=== PATIENT | female | born 1990 | race Caucasian/White ===

== ENCOUNTER 2017-10-13 20:00 | Inpatient (IN) ==
[2017-10-13] MEDS ORDERED: 0.9 % Sodium Chloride 1,000 ML ONE (20:41)
[2017-10-13] MEDS ORDERED: 0.9 % Sodium Chloride 1,000 ML IVC ONE (20:47)
[2017-10-13] MEDS: Naloxone 0.4 MG/ML INJ ONE ×3 (20:49→22:27)
[2017-10-13] MEDS ORDERED: Naloxone 0.4 MG/ML INJ ONE ×3 (20:55→22:26)
[2017-10-13 21:01] LABS: Basophils % 0.3 %; Eosinophils # 0.4 K/mcL (0.0-0.6); Eosinophils % 3.9 %; Hematocrit 35.6 % (35.3-44.9); Hemoglobin 12.6 g/dL (11.5-15.4); Immature Granulocytes % 0.3 % (0-4); Lymphocytes # 2.9 K/mcL (0.6-4.6); Lymphocytes % 32.7 %; Mean Corpuscular HGB Conc 35.4 g/dL (31.6-35.5); Mean Corpuscular Hemoglobin 30.1 pg (28.0-33.3); Mean Platelet Volume 9.1 fL (9.4-12.4); Monocytes # 0.6 K/mcL (0.0-1.3); Monocytes % 6.9 %; Platelet Count 224 K/mcL (140-400); Red Blood Count 4.19 M/mcL (3.82-4.97); Red Cell Distribution Width 11.9 % (11.5-14.5); Segmented Neutrophils % 55.9 %
[2017-10-13 21:08] LABS: INR 1.3; Prothrombin Time 14.2 Seconds (9.4-12.1)
--- NOTE | 2017-10-13 21:11 | Emergency Department Note ---
Disposition Clinical Impression: Vaginal bleeding, Polysubstance abuse Altered mental status Qualifiers: Altered mental status type: unspecified Qualified Code(s): R41.82 - Altered mental status, unspecified Overdose Qualifiers: Encounter type: initial encounter Injury intent: undetermined intent Qualified Code(s): T50.904A - Poisoning by unspecified drugs, medicaments and biological substances, undetermined, initial encounter Disposition: Admitted As Inpatient Condition: Fair Referrals: NONE,PCP [Primary Care Provider] - Forms: ED Satisfaction Letter Time of Disposition: 23:47 General Adult HPI - General Chief complaint: ED Urogenital-Female Stated complaint: vaginal bleeding Time Seen by Provider: 10/13/17 20:11 Source: patient Mode of arrival: ambulatory Limitations: no limitations Nursing Notes Reviewed: Yes Vital Signs Reviewed: Yes - History of Present Illness HPI Narrative: 26-year-old female persists for evaluation of vaginal bleeding. Patient is not able to provide an accurate history. Patient appears somnolent during history taking. Review the record showed the patient was seen earlier this morning and left AGAINST MEDICAL ADVICE. Patient states that she has had a couple days of vaginal spotting and noted worsening vaginal bleeding tonight. Patient reports some abdominal cramping. Patient states she is but is unclear how far along she is. Denies any fevers or cough. States she feels nauseous. Patient states she smokes marijuana but denies any other illicit drugs. Family or friend at bedside states that they have he is Narcan during the last CD evaluation to arouse the patient. Pain Scale: 8 - Related Data Home Medications Medication Instructions Recorded Confirmed No Known Home Drugs 10/13/17 10/13/17 Allergies Allergy/AdvReac Type Severity Reaction Status Date / Time No Known Allergies Allergy Verified 10/13/17 20:05 All systems ED: reviewed and negative except as stated. Constitutional: Denies: fever Cardiovascular: Denies: chest pain Respiratory: Denies: cough Gastrointestinal: Reports: nausea, vomiting. 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 - Social History Smoking Status: Current every day smoker Smokeless Tobacco Status: No Alcohol use: Reports: none Drug use: Reports: none Physical Exam - General Limitations: no limitations General appearance: appears intoxicated - Head Head exam: atraumatic, normocephalic, normal inspection - Eye Eye exam: Present: normal appearance, PERRL, EOMI - ENT ENT exam: normal exam, normal oropharynx, mucous membranes moist - Neck Neck exam: Present: normal inspection, full ROM, trachea midline - Chest Chest inspection: Present: normal inspection, symmetric chest wall rise - Respiratory Respiratory exam: Present: normal lung sounds bilaterally. Absent: respiratory distress - Cardiovascular Cardiovascular exam: Present: normal rhythm, tachycardia. Absent: systolic murmur - Abdominal Exam Abdominal exam: Present: soft, Non-Tender, other (No palpable gravid uterus). Absent: guarding, rebound - Female Production Line Manager present during exam: Yes External Exam: Present: normal external exam, other (spotting of blood, no active hemorrhage ) Speculum Exam: Present: Pt Deferred Bimanual Exam: Present: Pt Deferred - Extremities Exam Extremities exam: Present: normal inspection. Absent: pedal edema - Back Exam Back exam: Present: normal inspection. Absent: CVA tenderness (R), CVA tenderness (L) - Neurological Exam Neurological exam: Present: alert, oriented X3 - Psychiatric Psychiatric exam: Present: flat affect - Skin Skin exam: Present: warm, dry, intact, normal color Course Course Narrative: Patient seen and examined. Patient appeared be under the influence of opiates. Patient pinpoint pupils with decreased responsiveness. Patient was given one 0.4mg Narcan with reversal and was able to answer question appropriately. Patient ultimately required another 0.4 mg of Narcan. Concerns at the patient likely is miscarrying. Patient's records reviewed show that the patient did have positive urine drug screen including benzos opiates cocaine and marijuana. Patient had normal hemoglobin from prior evaluation. Will repeat labs in gather ultrasound. Disposition pending. - Reevaluation(s) Reevaluation #1: Patient will require Narcan drip. Time: 21:54 Reevaluation #2: Patient intermittently responds to a higher dose of Narcan. Narcan drip started however the patient will be evaluated for altered mental status. Will get a head CT chest x-ray additional labs. At this point the patient is on Narcan drip and if she continues to be altered with decreased responsiveness she will likely require intubation. Time: 22:45 Reevaluation #3: Patient continued to be combative and would not cooperate. Patient had intermittent response with Narcan. Patient's not cooperating. Patient will need to be intubated. At this point the patient's a threat to herself. Patient will also need to be pink slipped and evaluated once her overdose and not under the influence of sentences has resolved. Time: 23:03 - Consultations Consultation #1: Spoke with OB who will see the patient in consult. Time: 23:32 Vital Signs Temperature 98.1 F 10/13/17 20:01 Pulse Rate 118 10/13/17 20:01 Respiratory Rate 20 10/13/17 20:01 Blood Pressure 107/76 10/13/17 20:01 O2 Sat by Pulse Oximetry 97 10/13/17 20:01 Temperature 98.1 F 10/13/17 20:26 Pulse Rate 91 10/13/17 23:40 Respiratory Rate 20 10/13/17 23:40 Blood Pressure 124/82 10/13/17 23:40 O2 Sat by Pulse Oximetry 100 10/13/17 23:40 Oxygen Delivery Oxygen Delivery Room Air Procedures - Intubation Time out performed: Yes sedative: Etomidate Mg Given: 20 paralytic: Rocuronium Mg Given: 50 Laryngoscope: fiber optic video scope ET Tube Size: 7.5 ET Tube Uncuffed: Yes Tube Secured Depth (cm): 22 Tube Secured Location: lips Tube Placement Confirmation: visualized tube passing through cords, equal breath sounds bilaterally, no breath sounds over epigastrium, confirmation by capnometry Patient Tolerated Procedure: well, no complications Intubation Complications: none Medical Decision Making - [facility] Narrative Medical decision making narrative: 26 show female with a history of polysubstance abuse presents for evaluation of vaginal bleeding. Patient was found to have a decreased level of consciousness. Patient was intermittently responding to Narcan. Ultimately the patient was on Narcan drip but did not significantly improve. Concerns for aspiration airway compromise as well as the patient's polysubstance use prompted a secure airway. Patient would localize pain. Patient would move all extremities. Eyes open to painful stimulus. Patient would mumble incomprehensible words at times prior to intubation. Patient then would become deeply sedated. - Lab Data Lab results reviewed: Yes I reviewed the patient's lab results. Result diagrams: 10/13/17 20:47 10/13/17 20:47 Lab Results 06/18/18 06/18/18 06/18/18 Range/Units 20:47 20:47 20:47 WBC 8.9 (4.3-11.1) K/mcL RBC 4.19 (3.82-4.97) M/mcL Hgb 12.6 (11.5-15.4) g/dL Hct 35.6 (35.3-44.9) % MCV 85.0 (83.0-100.0) fL MCH 30.1 (28.0-33.3) pg MCHC 35.4 (31.6-35.5) g/dL RDW 11.9 (11.5-14.5) % Plt Count 224 (140-400) K/mcL MPV 9.1 L (9.4-12.4) fL Immature Gran % 0.3 (0-4) % Seg Neutrophils % 55.9 % Lymphocytes % 32.7 % Monocytes % 6.9 % Eosinophils % 3.9 % Basophils % 0.3 % Neutrophils # 5.0 (1.6-8.9) K/mcL Lymphocytes # 2.9 (0.6-4.6) K/mcL Monocytes # 0.6 (0.0-1.3) K/mcL Eosinophils # 0.4 (0.0-0.6) K/mcL Basophils # 0.0 (0.0-0.2) K/mcL PT 14.2 H (9.4-12.1) Seconds INR 1.3 Sodium 135 L (136-145) mEq/L Potassium 3.6 (3.5-5.1) mEq/L Chloride 100 (98-107) mEq/L Carbon Dioxide 26 (23-29) mEq/L BUN 9 (6-20) mg/dL Creatinine 0.71 (0.60-1.20) mg/dL Est GFR ( Amer) > 60 (> 60) Est GFR (Non-Af Amer) > 60 (> 60) BUN/Creatinine Ratio 13 (6-26) Glucose 107 H (70-105) mg/dL Calculated Osmolality 279 L (280-300) Calcium 10.0 (8.6-10.3) mg/dL Total Bilirubin 0.6 (0.3-1.0) mg/dL Direct Bilirubin 0.2 (0.0-0.2) mg/dL Indirect Bilirubin 0.4 (0.0-1.2) mg/dL AST 17 (13-39) Units/L ALT 8 (7-52) Units/L Alkaline Phosphatase 44 (34-104) Units/L Serum Total Protein 7.3 (6.4-8.9) g/dL Albumin 4.3 (3.5-5.7) g/dL Globulin 3.0 (2.4-3.5) g/dL Albumin/Globulin Ratio 1.4 (1.1-2.2) Beta HCG, Quant 2359 H (Less than 5) mIU/mL Urine Color (Yellow) Urine Clarity (Clear) Urine pH (5.0-8.0) pH Units Ur Specific [place] (1.010-1.025) Urine Protein (Neg-Trace) mg/dL Urine Glucose (UA) (Normal) mg/dL Urine Ketones (Negative) mg/dL Urine Blood (Negative) Urine Nitrite (Negative) Urine Bilirubin (Negative) Urine Urobilinogen (Normal) mg/dL Ur Leukocyte Esterase (Negative) Ur Culture Indicated? (NO) 10/13/17 Range/Units 23:33 WBC (4.3-11.1) K/mcL RBC (3.82-4.97) M/mcL Hgb (11.5-15.4) g/dL Hct (35.3-44.9) % MCV (83.0-100.0) fL MCH (28.0-33.3) pg MCHC (31.6-35.5) g/dL RDW (11.5-14.5) % Plt Count (140-400) K/mcL MPV (9.4-12.4) fL Immature Gran % (0-4) % Seg Neutrophils % % Lymphocytes % % Monocytes % % Eosinophils % % Basophils % % Neutrophils # (1.6-8.9) K/mcL Lymphocytes # (0.6-4.6) K/mcL Monocytes # (0.0-1.3) K/mcL Eosinophils # (0.0-0.6) K/mcL Basophils # (0.0-0.2) K/mcL PT (9.4-12.1) Seconds INR Sodium (136-145) mEq/L Potassium (3.5-5.1) mEq/L Chloride (98-107) mEq/L Carbon Dioxide (23-29) mEq/L BUN (6-20) mg/dL Creatinine (0.60-1.20) mg/dL Est GFR ( Amer) (> 60) Est GFR (Non-Af Amer) (> 60) BUN/Creatinine Ratio (6-26) Glucose (70-105) mg/dL Calculated Osmolality (280-300) Calcium (8.6-10.3) mg/dL Total Bilirubin (0.3-1.0) mg/dL Direct Bilirubin (0.0-0.2) mg/dL Indirect Bilirubin (0.0-1.2) mg/dL AST (13-39) Units/L ALT (7-52) Units/L Alkaline Phosphatase (34-104) Units/L Serum Total Protein (6.4-8.9) g/dL Albumin (3.5-5.7) g/dL Globulin (2.4-3.5) g/dL Albumin/Globulin Ratio (1.1-2.2) Beta HCG, Quant (Less than 5) mIU/mL Urine Color Yellow (Yellow) Urine Clarity Clear (Clear) Urine pH 6.0 (5.0-8.0) pH Units Ur Specific [place] 1.013 (1.010-1.025) Urine Protein Negative (Neg-Trace) mg/dL Urine Glucose (UA) Normal (Normal) mg/dL Urine Ketones Trace H (Negative) mg/dL Urine Blood Negative (Negative) Urine Nitrite Negative (Negative) Urine Bilirubin Negative (Negative) Urine Urobilinogen Normal (Normal) mg/dL Ur Leukocyte Esterase Negative (Negative) Ur Culture Indicated? NO (NO) - Radiology Data Radiology results reviewed: Yes I reviewed the patient's radiology results. Chest X-Ray 10/13/17 22:44 IMPRESSION: 1. Endotracheal tube terminates 2.7 cm above edwardo. 2. Enteric tube tip and side-port in the gastric fundus below the gastroesophageal junction. 3. No acute cardiopulmonary abnormality. D/ / Neil Rodriguez / Neil Rodriguez Interpreting Provider: Neil Rodriguez S.[email or web address].AJavyR. - S.Sarah Situation: Demographics Background: Presenting Complaint Assessment: Vital Signs, Course and respsone to treatment, Patient/Family Expectation Recommendation: Barrier(s) to disposition, Recommendation based on pending studies, treatments, or consults Oneil Report Given to: Dr. Leonor Riggs Repor Time: 23:58
[2017-10-13 21:49] LABS: Alanine Aminotransferase 8 Units/L (7-52); Albumin 4.3 g/dL (3.5-5.7); Albumin/Globulin Ratio 1.4 (1.1-2.2); Alkaline Phosphatase 44 Units/L (34-104); Aspartate Amino Transferase 17 Units/L (13-39); BUN/Creatinine Ratio 13 (6-26); Bilirubin,Direct 0.2 mg/dL (0.0-0.2); Bilirubin,Indirect 0.4 mg/dL (0.0-1.2); Bilirubin,Total 0.6 mg/dL (0.3-1.0); Blood Urea Nitrogen 9 mg/dL (6-20); Carbon Dioxide 26 mEq/L (23-29); Chloride 100 mEq/L (98-107); Glucose 107 mg/dL (70-105); Osmolality,Calculated 279 (280-300); Potassium 3.6 mEq/L (3.5-5.1); Sodium 135 mEq/L (136-145); Total Protein 7.3 g/dL (6.4-8.9); eGFR For African Americans > 60 (> 60); eGFR For Non-African Americans > 60 (> 60)
[2017-10-13] MEDS ORDERED: Naloxone 2 MG in 0.9 % Sodium Chloride 500 ML IVC SCH (22:00)
[2017-10-13] MEDS ORDERED: Propofol 500 MG/50 ML INFUS..BTL ONE (23:19)
[2017-10-13 23:43] LABS: Bilirubin,Urine Negative (Negative); Blood,Urine Negative (Negative); Clarity,Urine Clear (Clear); Color,Urine Yellow (Yellow); Glucose,Urine (UA) Normal (Normal); Ketones,Urine Trace mg/dL (Negative); Leukocyte Esterase,Urine Negative (Negative); Nitrite,Urine Negative (Negative); Protein,Urine Negative (Neg-Trace); Specific Gravity,Urine 1.013 (1.010-1.025); Urobilinogen,Urine Normal (Normal)
--- NOTE | 2017-10-13 23:58 | Emergency Department Note ---
Disposition Clinical Impression: Vaginal bleeding, Polysubstance abuse Altered mental status Qualifiers: Altered mental status type: unspecified Qualified Code(s): R41.82 - Altered mental status, unspecified Overdose Qualifiers: Encounter type: initial encounter Injury intent: undetermined intent Qualified Code(s): T50.904A - Poisoning by unspecified drugs, medicaments and biological substances, undetermined, initial encounter Disposition: Admitted As Inpatient Condition: Fair General Adult HPI - General Chief complaint: ED Urogenital-Female Stated complaint: vaginal bleeding Time Seen by Provider: 10/13/17 20:11 Source: patient Mode of arrival: ambulatory Limitations: no limitations Nursing Notes Reviewed: Yes Vital Signs Reviewed: Yes - History of Present Illness Pain Scale: 8 - Related Data Home Medications Medication Instructions Recorded Confirmed No Known Home Drugs 10/13/17 10/13/17 Allergies Allergy/AdvReac Type Severity Reaction Status Date / Time No Known Allergies Allergy Verified 10/13/17 20:05 Constitutional: Denies: fever Cardiovascular: Denies: chest pain Respiratory: Denies: cough Gastrointestinal: Reports: nausea, vomiting. 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 - Social History Smoking Status: Current every day smoker Smokeless Tobacco Status: No Alcohol use: Reports: none Drug use: Reports: none Physical Exam - General Limitations: no limitations General appearance: appears intoxicated Course Vital Signs Temperature 98.1 F 10/13/17 20:01 Pulse Rate 118 10/13/17 20:01 Respiratory Rate 20 10/13/17 20:01 Blood Pressure 107/76 10/13/17 20:01 O2 Sat by Pulse Oximetry 97 10/13/17 20:01 Temperature 98.1 F 10/13/17 20:26 Pulse Rate 91 10/13/17 23:40 Respiratory Rate 20 10/13/17 23:40 Blood Pressure 124/82 10/13/17 23:40 O2 Sat by Pulse Oximetry 100 10/13/17 23:40 Oxygen Delivery Oxygen Delivery Room Air Medical Decision Making - Lab Data Result diagrams: 10/13/17 20:47 10/13/17 20:47 Lab Results 10/13/17 10/13/17 10/13/17 Range/Units 20:47 20:47 20:47 WBC 8.9 (4.3-11.1) K/mcL RBC 4.19 (3.82-4.97) M/mcL Hgb 12.6 (11.5-15.4) g/dL Hct 35.6 (35.3-44.9) % MCV 85.0 (83.0-100.0) fL MCH 30.1 (28.0-33.3) pg MCHC 35.4 (31.6-35.5) g/dL RDW 11.9 (11.5-14.5) % Plt Count 224 (140-400) K/mcL MPV 9.1 L (9.4-12.4) fL Immature Gran % 0.3 (0-4) % Seg Neutrophils % 55.9 % Lymphocytes % 32.7 % Monocytes % 6.9 % Eosinophils % 3.9 % Basophils % 0.3 % Neutrophils # 5.0 (1.6-8.9) K/mcL Lymphocytes # 2.9 (0.6-4.6) K/mcL Monocytes # 0.6 (0.0-1.3) K/mcL Eosinophils # 0.4 (0.0-0.6) K/mcL Basophils # 0.0 (0.0-0.2) K/mcL PT 14.2 H (9.4-12.1) Seconds INR 1.3 Sodium 135 L (136-145) mEq/L Potassium 3.6 (3.5-5.1) mEq/L Chloride 100 (98-107) mEq/L Carbon Dioxide 26 (23-29) mEq/L BUN 9 (6-20) mg/dL Creatinine 0.71 (0.60-1.20) mg/dL Est GFR ( Amer) > 60 (> 60) Est GFR (Non-Af Amer) > 60 (> 60) BUN/Creatinine Ratio 13 (6-26) Glucose 107 H (70-105) mg/dL Calculated Osmolality 279 L (280-300) Calcium 10.0 (8.6-10.3) mg/dL Total Bilirubin 0.6 (0.3-1.0) mg/dL Direct Bilirubin 0.2 (0.0-0.2) mg/dL Indirect Bilirubin 0.4 (0.0-1.2) mg/dL AST 17 (13-39) Units/L ALT 8 (7-52) Units/L Alkaline Phosphatase 44 (34-104) Units/L Serum Total Protein 7.3 (6.4-8.9) g/dL Albumin 4.3 (3.5-5.7) g/dL Globulin 3.0 (2.4-3.5) g/dL Albumin/Globulin Ratio 1.4 (1.1-2.2) Beta HCG, Quant 2359 H (Less than 5) mIU/mL Urine Color (Yellow) Urine Clarity (Clear) Urine pH (5.0-8.0) pH Units Ur Specific [place] (1.010-1.025) Urine Protein (Neg-Trace) mg/dL Urine Glucose (UA) (Normal) mg/dL Urine Ketones (Negative) mg/dL Urine Blood (Negative) Urine Nitrite (Negative) Urine Bilirubin (Negative) Urine Urobilinogen (Normal) mg/dL Ur Leukocyte Esterase (Negative) Ur Culture Indicated? (NO) Urine Opiates Screen (Nmdtbi=733) ng/mL Ur Barbiturates Screen (Htupbu=590) ng/mL Ur Phencyclidine Scrn (Cutoff=25) ng/mL Ur Amphetamines Screen (Rcqszx=8595) ng/mL U Benzodiazepines Scrn (Umsrqx=004) ng/mL Urine Cocaine Screen (Cutoff= 300) ng/mL U Marijuana (THC) Screen (Cutoff = 50) ng/mL 10/13/17 10/13/17 Range/Units 23:30 23:33 WBC (4.3-11.1) K/mcL RBC (3.82-4.97) M/mcL Hgb (11.5-15.4) g/dL Hct (35.3-44.9) % MCV (83.0-100.0) fL MCH (28.0-33.3) pg MCHC (31.6-35.5) g/dL RDW (11.5-14.5) % Plt Count (140-400) K/mcL MPV (9.4-12.4) fL Immature Gran % (0-4) % Seg Neutrophils % % Lymphocytes % % Monocytes % % Eosinophils % % Basophils % % Neutrophils # (1.6-8.9) K/mcL Lymphocytes # (0.6-4.6) K/mcL Monocytes # (0.0-1.3) K/mcL Eosinophils # (0.0-0.6) K/mcL Basophils # (0.0-0.2) K/mcL PT (9.4-12.1) Seconds INR Sodium (136-145) mEq/L Potassium (3.5-5.1) mEq/L Chloride (98-107) mEq/L Carbon Dioxide (23-29) mEq/L BUN (6-20) mg/dL Creatinine (0.60-1.20) mg/dL Est GFR ( Amer) (> 60) Est GFR (Non-Af Amer) (> 60) BUN/Creatinine Ratio (6-26) Glucose (70-105) mg/dL Calculated Osmolality (280-300) Calcium (8.6-10.3) mg/dL Total Bilirubin (0.3-1.0) mg/dL Direct Bilirubin (0.0-0.2) mg/dL Indirect Bilirubin (0.0-1.2) mg/dL AST (13-39) Units/L ALT (7-52) Units/L Alkaline Phosphatase (34-104) Units/L Serum Total Protein (6.4-8.9) g/dL Albumin (3.5-5.7) g/dL Globulin (2.4-3.5) g/dL Albumin/Globulin Ratio (1.1-2.2) Beta HCG, Quant (Less than 5) mIU/mL Urine Color Yellow (Yellow) Urine Clarity Clear (Clear) Urine pH 6.0 (5.0-8.0) pH Units Ur Specific [place] 1.013 (1.010-1.025) Urine Protein Negative (Neg-Trace) mg/dL Urine Glucose (UA) Normal (Normal) mg/dL Urine Ketones Trace H (Negative) mg/dL Urine Blood Negative (Negative) Urine Nitrite Negative (Negative) Urine Bilirubin Negative (Negative) Urine Urobilinogen Normal (Normal) mg/dL Ur Leukocyte Esterase Negative (Negative) Ur Culture Indicated? NO (NO) Urine Opiates Screen Positive H (Ujwkgr=594) ng/mL Ur Barbiturates Screen Negative (Qeqkpn=424) ng/mL Ur Phencyclidine Scrn Positive H (Cutoff=25) ng/mL Ur Amphetamines Screen Negative (Iyjszv=1119) ng/mL U Benzodiazepines Scrn Positive H (Hykljm=741) ng/mL Urine Cocaine Screen Positive H (Cutoff= 300) ng/mL U Marijuana (THC) Screen Negative (Cutoff = 50) ng/mL Critical Care Time Critical Care Time: Yes Total Critical Care Time: 60 Attestation: The high probability of a clinically significant, sudden or life threatening deterioration of the [resp/OCCUP THER] system(s) required my full and direct attention , intervention and personal management. The aggregate critical care time was [60 ] minutes. This time is in addition to time spent performing reported procedures but includes the following: [x] Data Review and interpretation [x] Patient assessment and monitoring of vital signs [x] Documentation [x] Medication orders and management Attestation Statement - Attestation Attestation: Patient is a 26-year-old female who presents to the emergency department for the second time in 24 hours for vaginal bleeding in . Patient was seen and evaluated this morning, required Narcan during her ED visit for increased somnolence and then ultimately signed out AGAINST MEDICAL ADVICE after tumultuous ED course with documented arguments with family members. Patient's last recorded ultrasound in the medical record was September 23 of this year which showed subchorionic hemorrhage, bradycardia the fetus and estimated gestational age 2 weeks earlier than that based on last menstrual period. IVP was confirmed. Blood type was O+. Patient's Quant earlier this morning drop significantly from her hCG quantitative the end of August. Patient returns with altered mental status tonight brought by a friend who denied any illicit drug use. Urine drug screen from earlier this morning tested positive for multiple substances including opiates, benzos, PCP, cocaine and marijuana. I agree with patient's physical exam findings as documented. Vital signs are stable on arrival. Patient was given Narcan with temporary sikhism of consciousness able to answer questions moving all 4 extremities spontaneously and then would slowly becomes somnolent again. Patient was given a total of 6 mg of Narcan and Narcan drip was initiated in the ED. Despite this patient would return to being quite somnolent and difficult to arouse. The decision was made to stabilize her airway and electively intubate her. Please see procedure note for conscious sedation and intubation. Patient was sedated with propofol, Bernard catheter was placed as well as NG tube labs drawn and sent. Portal chest x-ray was obtained which confirms appropriate ET tube and NG tube placement. Patient will be sent to CT for CT imaging of the head although no physical signs of trauma. Patient's having a small amount of vaginal bleeding but hemodynamically stable with a stable H&H per labs. Patient's hCG quantitative is continuing to drop. Due to altered mental status we were unable to consent for vaginal ultrasound to confirm complete AB. Patient is hemodynamically stable and not having heavy vaginal bleeding I do not feel this was needed emergently. Patient will be admitted to the ICU for further evaluation and management and OB was consulate to follow the patient from the ED. Patient will be admitted for altered metal status, polysubstance abuse, threatened AB with vaginal bleeding.
[2017-10-14 00:02] LABS: Amphetamine Screen,Urine Negative ng/mL (Cutoff=1000); Barbiturate Screen,Urine Negative ng/mL (Cutoff=200); Benzodiazepines Screen,Urine Positive ng/mL (Cutoff=200); Cannabinoid Screen,Urine Negative ng/mL (Cutoff = 50); Cocaine Screen,Urine Positive ng/mL (Cutoff= 300); Opiate Screen,Urine Positive ng/mL (Cutoff=300); Phencyclidine Screen,Urine Positive ng/mL (Cutoff=25)
[2017-10-14 00:21] LABS: ABG Base Excess -3 mEq/L (-2 to 3); ABG HCO3 22 mEq/L (21-27); ABG Oxygen Saturation 96 % (95-98); ABG PCO2 37 mmHg (35-45); ABG PH 7.39 pH Units (7.32-7.45); ABG PO2 79 mmHg (85-104); ABG TCO2 23 mEq/L (20-26); Blood Gas Modality PRVC; Blood Gas PEEP 5 cm H2O; Blood Gas Respiration Rate 16; Blood Gas VT 380 cc
[2017-10-14] MEDS ORDERED: 0.9 % Sodium Chloride 1,000 ML ONE (00:27)
[2017-10-14 00:34] LABS: Acetaminophen < 10 mcg/mL (10-20); Ethanol < 10 mg/dL (Less than 10); Salicylate < 2.5 mg/dL (15.0-30.0)
[2017-10-14] MEDS ORDERED: *HR* Midazolam HCl 5 MG/5 ML VIAL IVP ONE ×2 (00:47→01:06)
[2017-10-14] MEDS ORDERED: Naloxone 0.4 MG/ML INJ IVP PRN ×2 (01:06→14:04)
[2017-10-14] MEDS: FentaNYL (PF) 1,000 MCG in 0.9 % Sodium Chloride 80 ML IVC SCH ×2 (01:12→05:27)
[2017-10-14] MEDS: 0.9 % Sodium Chloride w KCl 20 MEQ/1,000 ML MLS IVC SCH ×2 (02:41→22:12)
--- NOTE | 2017-10-14 03:27 | Internal Med History&Physical ---
Date of Encounter: 10/14/17 Time of Encounter: 00:50 Internal Medicine - H&P: HPI Chief complaint: overdose; respiratory failure Admitted From: Emergency Dept Plans for Post Hospital Care: Transfer Psych Facility History of present illness: Ms. Turner is a 26 year old female who presents to the ER earlier tonight with an altered mental state and minimally responsive state. She appeared to be under the influence of opiates and was given Narcan several times in the ER with very minimal and limited response. She rapidly declined her clinical state and was losing her ability to protect her airway, so she was intubated in the ER and worked up. She was then admitted to ICU for drug overdose and possible miscarriage. Her urine drug screen was positive for multiple substances. She was and appears to have been miscarrying for the last few weeks. Her quantitative hCG has been decreasing since September 03 and, with the vaginal bleeding, has likely been miscarrying. MOVING VAN DRIVER was consulted per the ER , and I spoke with him personally myself. They will see her in consultation in the morning along with an OB ultrasound. Upon my assessment of the patient in the ICU, patient is intubated and sedated. Her sedation was wearing when she presented to the ICU. She was moving all 4 extremities purposely and did have a gag reflex. We sedated her with fentanyl and Versed and weaned off her Propofol due to the remote possibility of a viable . She is oxygenating well on minimal oxygen. We will continue her ventilation with mechanical ventilator and ask the software reverse engineer to assume care in the morning. There are no family members present to offer any further history. Of note, there is report that patient's was in the ER when she came in, but he left the hospital. I am unsure if there has been any domestic issues at home. Given her multidrug overdose and respiratory failure, I am concerned this might have been a suicide attempt. Therefore, we will place her in suicide precautions and consult psychiatry as well. Past Med Surg Social Fam HX - Past Medical History Source: old records reviewed, other (ER notes/records) Medical history: no medical history, other (polysubstance abuse) Additional medical history: pts husnad unable to provide any medical history Psychiatric history: anxiety, depression - Past Surgical History Additional surgical history: unknown - Social History Smoking Status: Current every day smoker Smokeless Tobacco Status: No Alcohol use: unknown Drug use: cocaine, opiates, marijuana, methamphetamine, other - Family History Mother History Unknown: Yes Father History Unknown: Yes Internal Medicine - H&P: Meds No Known Home Drugs 10/13/17 [History] 3 Allergy/AdvReac Type Severity Reaction Status Date / Time No Known Allergies Allergy Verified 10/13/17 20:05 ROS unobtainable: due to endotracheal tube, due to mental status - Constitutional Vitals: Temp Pulse Resp BP Pulse Ox 96.5 F L 87 16 108/70 100 10/14/17 00:57 10/14/17 02:00 10/14/17 02:00 10/14/17 02:00 10/14/17 02:00 Exam: sedated presently; purposeful activity and 4 extremity movement as sedation was weaning off - Head Head exam: Present: atraumatic, normal inspection - Eye Eye exam: Present: PERRL. Absent: scleral icterus - ENT ENT exam: Present: mucous membranes dry, normal exam, normal oropharynx Additional comments: ETT in place; + gag reflex - Neck Neck exam general surgery: Present: supple, trachea midline. Absent: tenderness , nuchal rigidity, thyromegaly - Respiratory Respiratory exam: Present: CTAB. Absent: accessory muscle use, rales, rhonchi, wheezes - Cardiovascular Cardiovascular exam: Present: RRR, +S1, +S2. Absent: diastolic murmur, systolic murmur - GI/Abdominal GI/Abdominal exam: Present: normal bowel sounds, soft. Absent: guarding, hepatomegaly, mass, rebound, splenomegaly, tenderness - Extremities Exam Extremities exam: Present: full ROM, normal capillary refill, normal inspection , warm, radial pulses palpable and symmetrical. Absent: pedal edema, tenderness - Back Exam Back exam: Present: normal inspection - Neurological Exam Additional comments: sedated; purposeful activity as noted above - Psychiatric Additional comments: unable to assess; suspect suicidal based upon presentation in altered mental state and multi-drug overdose - Skin Skin exam: Present: dry, warm. Absent: rash Internal Med - H&P Results - Labs CBC & Chem 7: 10/13/17 20:47 10/13/17 20:47 Labs: Salicylate and acetaminophen level negative Urine drug screen positive for opiates, PCP, benzodiazepine, and cocaine - ABG Interpretation ABG results: 10/14/17 00:18 ABG pH 7.39 ABG pCO2 37 ABG pO2 79 L ABG HCO3 22 ABG Total CO2 23 ABG O2 Saturation 96 ABG Base Excess -3 L - EKG Data -: EKG Interpreted by Myself - EKG Data Prior EKG available for review: no EKG comments: 10/14/17 03:32 NSR; short [place] interval - Diagnostic Studies Chest x-ray Status: image reviewed by me (lungs clear; ETT in position) - Assessment and plan (1) Respiratory failure Current Visit: Yes Status: Acute Assessment and plan: 1. We will continue mechanical ventilation and consult software reverse engineer for ongoing ICU management. 2. Initial ABG after mechanical ventilation appears to be stable on minimal vent settings. We will continue these settings and repeat ABG later this morning. 3. Continue sedation with fentanyl and Versed and then we will these can be weaned once she is ready to be extubated. Please note total of 65 minutes critical care time spent thus far assessing, managing, and rendering further treatment for patient. Qualifiers: Chronicity: acute Respiratory failure complication: unspecified whether with hypoxia or hypercapnia Qualified Code(s): J96.00 - Acute respiratory failure, unspecified whether with hypoxia or hypercapnia (2) Suicidal intent Current Visit: Yes Status: Suspected Assessment and plan: 1. We will place on suicide precautions. 2. Once sedation is weaned off and patient is extubated, she will need a 24- hour sitter and psychiatry consultation to assess suicidal risk and possible need for inpatient psychiatry treatment. (3) Overdose Current Visit: Yes Status: Acute Assessment and plan: 1. Urine drug screen is positive for multiple substances of abuse. 2. We will repeat urine drug screen this morning to reassess possible drugs that had not yet been metabolized prior to presentation. 3. Repeat salicylate and acetaminophen levels this morning as well as there is no known history of ingestion of these medications and timing could be of the essence. Qualifiers: Encounter type: initial encounter Injury intent: undetermined intent Qualified Code(s): T50.904A - Poisoning by unspecified drugs, medicaments and biological substances, undetermined, initial encounter (4) Miscarriage Current Visit: Yes Status: Suspected Assessment and plan: 1. OB has been consulted. 2. OB ultrasound ordered. (5) DVT prophylaxis Current Visit: Yes Status: Acute Assessment and plan: 1. EPCD's.
[2017-10-14 05:03] LABS: ABG Base Excess -3 mEq/L (-2 to 3); ABG HCO3 23 mEq/L (21-27); ABG Oxygen Saturation 97 % (95-98); ABG PCO2 39 mmHg (35-45); ABG PH 7.37 pH Units (7.32-7.45); ABG PO2 98 mmHg (85-104); ABG TCO2 24 mEq/L (20-26); Blood Gas Modality VC; Blood Gas Respiration Rate 16; Blood Gas VT 380 cc
[2017-10-14 06:03] LABS: Amphetamine Screen,Urine Negative ng/mL (Cutoff=1000); Barbiturate Screen,Urine Negative ng/mL (Cutoff=200); Benzodiazepines Screen,Urine Positive ng/mL (Cutoff=200); Cannabinoid Screen,Urine Positive ng/mL (Cutoff = 50); Cocaine Screen,Urine Positive ng/mL (Cutoff= 300); Opiate Screen,Urine Positive ng/mL (Cutoff=300); Phencyclidine Screen,Urine Positive ng/mL (Cutoff=25)
[2017-10-14 06:09] LABS: Basophils % 0.4 %; Eosinophils # 0.2 K/mcL (0.0-0.6); Eosinophils % 3.2 %; Hematocrit 28.5 % (35.3-44.9); Immature Granulocytes % 0.2 % (0-4); Lymphocytes # 1.6 K/mcL (0.6-4.6); Lymphocytes % 32.9 %; Mean Corpuscular HGB Conc 34.7 g/dL (31.6-35.5); Mean Corpuscular Hemoglobin 30.2 pg (28.0-33.3); Mean Corpuscular Volume 86.9 fL (83.0-100.0); Mean Platelet Volume 9.4 fL (9.4-12.4); Monocytes # 0.3 K/mcL (0.0-1.3); Monocytes % 5.8 %; Neutrophils # 2.9 K/mcL (1.6-8.9); Platelet Count 165 K/mcL (140-400); Red Blood Count 3.28 M/mcL (3.82-4.97); Segmented Neutrophils % 57.5 %
[2017-10-14 06:11] LABS: Hemoglobin 9.9 g/dL (11.5-15.4)
[2017-10-14 06:18] LABS: INR 1.3; Prothrombin Time 13.6 Seconds (9.4-12.1)
[2017-10-14 06:32] LABS: Acetaminophen < 10 mcg/mL (10-20); Salicylate < 2.5 mg/dL (15.0-30.0)
[2017-10-14 06:34] LABS: Alanine Aminotransferase 5 Units/L (7-52); Albumin 3.3 g/dL (3.5-5.7); Albumin/Globulin Ratio 1.4 (1.1-2.2); Alkaline Phosphatase 30 Units/L (34-104); Aspartate Amino Transferase 12 Units/L (13-39); BUN/Creatinine Ratio 18 (6-26); Bilirubin,Direct 0.2 mg/dL (0.0-0.2); Bilirubin,Indirect 0.3 mg/dL (0.0-1.2); Bilirubin,Total 0.5 mg/dL (0.3-1.0); Blood Urea Nitrogen 7 mg/dL (6-20); Calcium 8.4 mg/dL (8.6-10.3); Carbon Dioxide 19 mEq/L (23-29); Chloride 112 mEq/L (98-107); Globulin 2.3 g/dL (2.4-3.5); Glucose 73 mg/dL (70-105); Magnesium 1.8 mg/dL (1.6-2.6); Osmolality,Calculated 287 (280-300); Potassium 3.6 mEq/L (3.5-5.1); Sodium 140 mEq/L (136-145); Total Protein 5.6 g/dL (6.4-8.9); eGFR For African Americans > 60 (> 60); eGFR For Non-African Americans > 60 (> 60)
--- NOTE | 2017-10-14 08:19 | Pulmonology Consult Note ---
<ManjeetnoenormaErick hart - Last Filed: 10/14/17 10:46> Date of Encounter: 10/14/17 Time of Encounter: 09:00 Assessment and Plan (1) Respiratory failure Current Visit: Yes Status: Resolved Patient was intubated in the ED due to decline in clinical status and inability to protect airway. ABG within normal limits. Patient was extubated this morning and is doing well at 97% O2 saturation on RA. Patient will be transferred out of the ICU today and to a med/surg unit. Spoke to hopsitalist Dr. Bryant who agreed to accept the patient. Qualifiers: Chronicity: acute Respiratory failure complication: unspecified whether with hypoxia or hypercapnia Qualified Code(s): J96.00 - Acute respiratory failure, unspecified whether with hypoxia or hypercapnia (2) Overdose Current Visit: Yes Status: Acute UDS positive for opiates, PCP, benzodiazepines, cocaine, and marajuana. Salicylate and acetaminophen levels low. Psych consult ordered. - Follow-up with psych. Qualifiers: Encounter type: initial encounter Injury intent: undetermined intent Qualified Code(s): T50.904A - Poisoning by unspecified drugs, medicaments and biological substances, undetermined, initial encounter (3) Miscarriage Current Visit: Yes Status: Suspected Vaginal bleeding x 1 month. Increasing bleeding for past 2 days. Her quantitative BhCG has been decreasing since September 03 and, with the vaginal bleeding , has likely been miscarrying. Hgb currently stable at 9.9. OB consult was ordered. They report minimal vaginal bleeding. U/S ordered for this afternoon. - Follow-up with ultrasound reading this afternoon. (4) DVT prophylaxis Current Visit: Yes Status: Acute EPCD History of Present Illness Consult date: 10/14/17 Requesting physician: Dane Dallas Reason for consult: other (Polysubstance overdose/AMS) Chief complaint: Vaginal bleeding History of present illness: Patient is a 26 year old female 12 weeks gestation that presented yesterday to the ER for AMS secondary to polysusbtance overdose and increased vaginal bleeding. Patient was minimally responsive to Narcan in the ED. Her clinical state rapidly declined and was subsequently intubated due to inability to protect her airway. Her UDS was positive for opiates, PCP, benzodiazepines, cocaine, and marajuana. Patient was extubated this morning and has been alert, oriented, and able to answer further questioning. She says that she has been experiencing light vaginal bleeding for the past month but her bleeding became worse in the past 2 days. Patient admits to consuming multiple illicit drugs over the past 3 days, but could not specify which. She assured me that she is not suicidal. She currently denies any chest pain, SOB, nausea, vomiting, abdominal pain, dizziness, JOHNSON, or vision changes. Past Med Surg Social Fam HX - Past Medical History Medical history: no medical history, other (polysubstance abuse) Additional medical history: pts husnad unable to provide any medical history Psychiatric history: anxiety, depression - Past Surgical History Additional surgical history: unknown - Social History Smoking Status: Current every day smoker Smokeless Tobacco Status: No Alcohol use: unknown Drug use: cocaine, opiates, marijuana, methamphetamine, other - Family History Mother History Unknown: Yes Father History Unknown: Yes Medications and Allergies Norgestimate-Ethinyl Estradiol [Ortho-Cyclen 28 Tablet] 1 each PO DAILY #30 tablet 10/14/17 [Rx] 3 Allergy/AdvReac Type Severity Reaction Status Date / Time No Known Allergies Allergy Verified 10/13/17 20:05 All Systems: The remainder of the systems were reviewed and are negative - Constitutional Constitutional: as per HPI, no chills, no fever(s), no headache(s) - EENT Eyes: other (Denies vision changes) Nose, mouth and throat: no dizziness, no headache(s) - Cardiovascular Cardiovascular: no chest pain, no dyspnea, no lightheadedness - Respiratory Respiratory: no cough - Gastrointestinal Gastrointestinal: no abdominal pain, no cramping, no nausea, no vomiting - Musculoskeletal Musculoskeletal: no numbness, no tingling - Neurological Neurological: no focal weakness, no headache(s), no numbness, no tingling - Psychiatric Psychiatric: no suicidal ideation Physical Examination Vital Signs: Vital Signs, Last 4 Hours Temp Pulse Resp BP Pulse Ox 10/14/17 07:50 16 133/90 97 10/14/17 07:29 16 106/70 100 10/14/17 07:00 98.9 F 10/14/17 06:25 13 103/62 100 10/14/17 06:00 86 16 103/62 100 10/14/17 05:05 16 105/63 100 10/14/17 05:00 99.3 F 86 16 105/63 100 10/14/17 04:30 86 16 110/76 100 General appearance: no acute distress Eyes: nonicteric ENT: oropharynx moist Neck: supple Auscultation: bilateral: rhonchi (Minor upon inspiration) Cardiovascular: regular rate and rhythm Gastrointestinal: normoactive bowel sounds, soft, non-distended Integumentary: normal Extremities: no cyanosis, no edema, no clubbing, pink and warm, pulses normal, no ischemia or petechiae Musculoskeletal: no deformities normal mental status mood appropriate, affect normal Ventilator Settings Ventilator Settings: Ventilator Settings, Last 8 Hours Ventilator Tidal Volume 380 Setting Ventilator Tidal Volume 380 Setting Ventilator Tidal Volume 380 Setting Ventilator Tidal Volume 380 Setting Ventilator Tidal Volume 380 Setting Ventilator Tidal Volume 380 Setting Ventilator Tidal Volume 380 Setting Ventilator Tidal Volume 380 Setting Ventilator Tidal Volume 380 Setting Ventilator Tidal Volume 380 Setting Ventilator Respiratory Rate 16 Setting Ventilator Respiratory Rate 16 Setting Ventilator Respiratory Rate 16 Setting Ventilator Respiratory Rate 16 Setting Ventilator Respiratory Rate 16 Setting Ventilator Respiratory Rate 16 Setting Ventilator Respiratory Rate 16 Setting Ventilator Respiratory Rate 16 Setting Ventilator Respiratory Rate 16 Setting Ventilator Respiratory Rate 16 Setting Actual Respiratory Rate 16 Actual Respiratory Rate 13 Actual Respiratory Rate 16 Actual Respiratory Rate 16 Actual Respiratory Rate 16 Actual Respiratory Rate 16 Actual Respiratory Rate 20 Actual Respiratory Rate 16 Actual Respiratory Rate 16 Actual Respiratory Rate 16 Actual Respiratory Rate 16 Positive End Expiratory 5 Pressure Positive End Expiratory 5 Pressure Positive End Expiratory 5 Pressure Positive End Expiratory 5 Pressure Positive End Expiratory 5 Pressure Positive End Expiratory 5 Pressure Positive End Expiratory 5 Pressure Positive End Expiratory 5 Pressure Positive End Expiratory 5 Pressure Positive End Expiratory 5 Pressure Positive End Expiratory 5 Pressure Positive End Expiratory 5 Pressure Peak Inspiratory Airway 10 Pressure Peak Inspiratory Airway 10 Pressure Peak Inspiratory Airway 19 Pressure Peak Inspiratory Airway 19 Pressure Peak Inspiratory Airway 19 Pressure Peak Inspiratory Airway 19 Pressure Peak Inspiratory Airway 22 Pressure Peak Inspiratory Airway 19 Pressure Peak Inspiratory Airway 19 Pressure Peak Inspiratory Airway 19 Pressure Peak Inspiratory Airway 20 Pressure Results - Laboratory Findings CBC and BMP: 10/14/17 09:36 10/14/17 05:40 ABG ABG pH 7.37 pH Units (7.32-7.45) 10/14/17 05:00 ABG pCO2 39 mmHg (35-45) 10/14/17 05:00 ABG pO2 98 mmHg (85-104) 10/14/17 05:00 ABG O2 Saturation 97 % (95-98) 10/14/17 05:00 PT/INR, D-dimer PT 13.6 Seconds (9.4-12.1) H 10/14/17 05:40 Abnormal lab findings: Abnormal lab results RBC 3.28 M/mcL (3.82-4.97) L 10/14/17 05:40 Hgb 9.9 g/dL (11.5-15.4) L D 10/14/17 05:40 Hct 28.5 % (35.3-44.9) L 10/14/17 05:40 PT 13.6 Seconds (9.4-12.1) H 10/14/17 05:40 ABG Base Excess -3 mEq/L (-2 to 3) L 10/14/17 05:00 Chloride 112 mEq/L (98-107) H 10/14/17 05:40 Carbon Dioxide 19 mEq/L (23-29) L 10/14/17 05:40 Creatinine 0.39 mg/dL (0.60-1.20) L 10/14/17 05:40 POC Glucose 104 mg/dL (70-99) H 10/14/17 00:49 Calcium 8.4 mg/dL (8.6-10.3) L 10/14/17 05:40 AST 12 Units/L (13-39) L 10/14/17 05:40 ALT 5 Units/L (7-52) L 10/14/17 05:40 Alkaline Phosphatase 30 Units/L (34-104) L 10/14/17 05:40 Serum Total Protein 5.6 g/dL (6.4-8.9) L 10/14/17 05:40 Albumin 3.3 g/dL (3.5-5.7) L 10/14/17 05:40 Globulin 2.3 g/dL (2.4-3.5) L 10/14/17 05:40 Beta HCG, Quant 2359 mIU/mL (Less than 5) H 10/13/17 20:47 Urine Ketones Trace mg/dL (Negative) H 10/13/17 23:33 Salicylates < 2.5 mg/dL (15.0-30.0) L 10/14/17 05:40 Urine Opiates Screen Positive ng/mL (Etwxhg=532) H 10/14/17 05:27 Acetaminophen < 10 mcg/mL (10-20) L 10/14/17 05:40 Ur Phencyclidine Scrn Positive ng/mL (Cutoff=25) H 10/14/17 05:27 U Benzodiazepines Scrn Positive ng/mL (Ycxdwz=869) H 10/14/17 05:27 Urine Cocaine Screen Positive ng/mL (Cutoff= 300) H 10/14/17 05:27 U Marijuana (THC) Screen Positive ng/mL (Cutoff = 50) H 10/14/17 05:27 - Clinical Findings Intake & Output: Intake & Output 10/13/17 10/14/17 10/14/17 23:59 07:59 15:59 Intake Total 142.3 / 142.3 Output Total 825 / 825 Balance -682.7 / -682.7 Weight 53.3 kg Consult Discharge Plan - Plan Referrals: NONE,PCP [Primary Care Provider] - Prescriptions: Norgestimate-Ethinyl Estradiol [Ortho-Cyclen 28 Tablet] 1 each PO DAILY #30 tablet <Marilyn Cali M - Last Filed: 10/14/17 17:16> Date of Encounter: 10/14/17 All Systems: The remainder of the systems were reviewed and are negative Physical Examination Vital Signs: Vital Signs, Last 4 Hours Temp Pulse Resp BP Pulse Ox 10/14/17 15:26 99.0 F 105 14 103/62 98 Results - Laboratory Findings CBC and BMP: 10/14/17 09:36 10/14/17 05:40 ABG ABG pH 7.37 pH Units (7.32-7.45) 10/14/17 05:00 ABG pCO2 39 mmHg (35-45) 10/14/17 05:00 ABG pO2 98 mmHg (85-104) 10/14/17 05:00 ABG O2 Saturation 97 % (95-98) 10/14/17 05:00 PT/INR, D-dimer PT 13.6 Seconds (9.4-12.1) H 10/14/17 05:40 Abnormal lab findings: Abnormal lab results RBC 3.28 M/mcL (3.82-4.97) L 10/14/17 05:40 Hgb 9.8 g/dL (11.5-15.4) L 10/14/17 09:36 Hct 28.8 % (35.3-44.9) L 10/14/17 09:36 PT 13.6 Seconds (9.4-12.1) H 10/14/17 05:40 ABG Base Excess -3 mEq/L (-2 to 3) L 10/14/17 05:00 Chloride 112 mEq/L (98-107) H 10/14/17 05:40 Carbon Dioxide 19 mEq/L (23-29) L 10/14/17 05:40 Creatinine 0.39 mg/dL (0.60-1.20) L 10/14/17 05:40 POC Glucose 104 mg/dL (70-99) H 10/14/17 00:49 Calcium 8.4 mg/dL (8.6-10.3) L 10/14/17 05:40 AST 12 Units/L (13-39) L 10/14/17 05:40 ALT 5 Units/L (7-52) L 10/14/17 05:40 Alkaline Phosphatase 30 Units/L (34-104) L 10/14/17 05:40 Serum Total Protein 5.6 g/dL (6.4-8.9) L 10/14/17 05:40 Albumin 3.3 g/dL (3.5-5.7) L 10/14/17 05:40 Globulin 2.3 g/dL (2.4-3.5) L 10/14/17 05:40 Beta HCG, Quant 1817 mIU/mL (Less than 5) H 10/14/17 09:36 Urine Ketones Trace mg/dL (Negative) H 10/13/17 23:33 Salicylates < 2.5 mg/dL (15.0-30.0) L 10/14/17 05:40 Urine Opiates Screen Positive ng/mL (Lnateo=278) H 10/14/17 05:27 Acetaminophen < 10 mcg/mL (10-20) L 10/14/17 05:40 Ur Phencyclidine Scrn Positive ng/mL (Cutoff=25) H 10/14/17 05:27 U Benzodiazepines Scrn Positive ng/mL (Dtywok=411) H 10/14/17 05:27 Urine Cocaine Screen Positive ng/mL (Cutoff= 300) H 10/14/17 05:27 U Marijuana (THC) Screen Positive ng/mL (Cutoff = 50) H 10/14/17 05:27 - Clinical Findings Intake & Output: Intake & Output 10/14/17 10/14/17 10/14/17 07:59 15:59 23:59 Intake Total 142.3 / 142.3 360 / 360 Output Total 825 / 825 Balance -682.7 / -682.7 360 / 360 Weight 53.3 kg - Attending Attestation I examined this patient and my medical decision-making was reviewed with the Resident Physician. I agree with the documented findings, disposition and treatment plan as described except to the extent set forth below. Patient seen and examined. Labs, radiology, chart personally reviewed. 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 Patient understand she needs to change her lifestyle otherwise prognosis is poor. FUSE SPOOLER is following the patient. Cardiovascular: stable
--- NOTE | 2017-10-14 09:32 | Discharge Summary ---
Outpatient Proc Discharge Plan - Plan Prescriptions: Norgestimate-Ethinyl Estradiol [Ortho-Cyclen 28 Tablet] 1 each PO DAILY #30 tablet Home Medications: Norgestimate-Ethinyl Estradiol [Ortho-Cyclen 28 Tablet] 1 each PO DAILY #30 tablet 10/14/17 [Rx]
[2017-10-14 10:04] LABS: Hematocrit 28.8 % (35.3-44.9); Hemoglobin 9.8 g/dL (11.5-15.4)
[2017-10-14] MEDS ORDERED: *HR* Rocuronium Bromide 50 MG/5 ML VIAL IVC ONE (16:42)
[2017-10-14] MEDS ORDERED: *HR* Etomidate 20 MG/10 ML AMPUL IVP ONE (16:42)
--- NOTE | 2017-10-14 17:27 | Electrocardiograph Report ---
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
--- NOTE | 2017-10-14 19:35 | OB/GYN Consult Note ---
Date of Encounter: 10/14/17 Time of Encounter: 19:30 Assessment and Plan (1) Overdose Current Visit: Yes Status: Acute Qualifiers: Encounter type: initial encounter Injury intent: undetermined intent Qualified Code(s): T50.904A - Poisoning by unspecified drugs, medicaments and biological substances, undetermined, initial encounter (2) Polysubstance abuse Current Visit: Yes Status: Acute (3) Miscarriage Current Visit: Yes Status: Suspected Patient is a 26-year-old 4 para 1 female children approximately 11 weeks gestation presented with polysubstance overdose with vaginal bleeding. When seen on September 03 ultrasound showed her to be 6 weeks and 0 days with positive heart tones. From that she should not be approximately 11 weeks however her quantitative beta hCG has dropped from 19,000 to 2359 and [id number] today. Ultrasound shows interval passage of the pole and no significant remaining products conception. She is having minimal bleeding minimal pain. Her blood type is Rh+. I have discussed with patient options at this point do not believe she needs either medical or surgical D&C to empty the uterus. From my standpoint is fine for patient to be discharged home to follow-up with me in my office in 2 weeks. I have advised her to call for worsening pain bleeding or other problems. I did give her prescription for Ortho-Cyclen control pills to start 2 Sundays from now. History of Present Illness Consult date: 10/14/17 Reason for consult: other Chief complaint: Polysubstance overdose with vaginal bleeding and known positive preg History of present illness: She was a 26 showed 4 para 1 female with known positive test mid last night to the emergency room to the ICU with polysubstance overdose. She was intubated and stabilized. She had known positive been seen demonstrated which time ultrasound showed her to be 6 weeks 0 days with positive heart tones and subchorionic hemorrhage her quantitative beta hCG at that time was 19,869. She reports to me that she has had no further follow-up for this and did not keep her follow-up in our office after the midnight ER visit. She reports onset of worsening vaginal bleeding or last 2-3 days prior to admission yesterday she was passing large clots and at one point passed what she thought may been products conception. Since being admitted the bleeding has now slowed to her cramping has resolved. She reports significant cramping yesterday which was midline. She denies fevers chills or abnormal discharge aside from the bleeding. She does previously have history of 1 prior vaginal delivery and 2 elective abortions. She does have a long history of narcotics abuse and states recently she was 6-1/ 2 months clean until the last month when she became reacquainted with a friend who recently got out of shelter Past Med Surg Social Fam HX - Past Medical History Source: patient, old records reviewed Additional medical history: pts edgar unable to provide any medical history Psychiatric history: anxiety, depression - Past Surgical History Additional surgical history: unknown - Social History Smoking Status: Current every day smoker Smokeless Tobacco Status: No Alcohol use: unknown Drug use: cocaine, opiates, marijuana, methamphetamine, other - Family History Mother History Unknown: Yes Father History Unknown: Yes Medications and Allergies Norgestimate-Ethinyl Estradiol [Ortho-Cyclen 28 Tablet] 1 each PO DAILY #30 tablet 10/14/17 [Rx] 3 Allergy/AdvReac Type Severity Reaction Status Date / Time No Known Allergies Allergy Verified 10/13/17 20:05 Exam - Vital Signs Vital signs: Initial Vital Signs Temp Pulse Resp BP Pulse Ox 98.1 F 118 20 107/76 97 10/13/17 20:01 10/13/17 20:01 10/13/17 20:01 10/13/17 20:01 10/13/17 20:01 - Constitutional Constitutional: no acute distress - HEENT HEENT: EOMI, PERRL - Neck Neck exam: full ROM - Lungs Respiratory exam: CTAB - Cardiovascular Cardiovascular exam: RRR - Abdomen Abdomen: Present: bowel sounds normal - Extremities Deep Tendon Reflex Grade: 2+ Normal - Comments Comments: Lower abdomen is minimally tender no rebound no guarding, she has scant blood on her external perineum. Results Result Diagrams: 10/14/17 09:36 10/14/17 05:40 Abnormal lab results RBC 3.28 M/mcL (3.82-4.97) L 10/14/17 05:40 Hgb 9.8 g/dL (11.5-15.4) L 10/14/17 09:36 Hct 28.8 % (35.3-44.9) L 10/14/17 09:36 PT 13.6 Seconds (9.4-12.1) H 10/14/17 05:40 ABG Base Excess -3 mEq/L (-2 to 3) L 10/14/17 05:00 Chloride 112 mEq/L (98-107) H 10/14/17 05:40 Carbon Dioxide 19 mEq/L (23-29) L 10/14/17 05:40 Creatinine 0.39 mg/dL (0.60-1.20) L 10/14/17 05:40 POC Glucose 104 mg/dL (70-99) H 10/14/17 00:49 Calcium 8.4 mg/dL (8.6-10.3) L 10/14/17 05:40 AST 12 Units/L (13-39) L 10/14/17 05:40 ALT 5 Units/L (7-52) L 10/14/17 05:40 Alkaline Phosphatase 30 Units/L (34-104) L 10/14/17 05:40 Serum Total Protein 5.6 g/dL (6.4-8.9) L 10/14/17 05:40 Albumin 3.3 g/dL (3.5-5.7) L 10/14/17 05:40 Globulin 2.3 g/dL (2.4-3.5) L 10/14/17 05:40 Beta HCG, Quant 1817 mIU/mL (Less than 5) H 10/14/17 09:36 Urine Ketones Trace mg/dL (Negative) H 10/13/17 23:33 Salicylates < 2.5 mg/dL (15.0-30.0) L 10/14/17 05:40 Urine Opiates Screen Positive ng/mL (Irkiqq=270) H 10/14/17 05:27 Acetaminophen < 10 mcg/mL (10-20) L 10/14/17 05:40 Ur Phencyclidine Scrn Positive ng/mL (Cutoff=25) H 10/14/17 05:27 U Benzodiazepines Scrn Positive ng/mL (Hgietj=898) H 10/14/17 05:27 Urine Cocaine Screen Positive ng/mL (Cutoff= 300) H 10/14/17 05:27 U Marijuana (THC) Screen Positive ng/mL (Cutoff = 50) H 10/14/17 05:27 All other labs normal. Consult Discharge Plan - Plan Referrals: NONE,PCP [Primary Care Provider] - Prescriptions: Norgestimate-Ethinyl Estradiol [Ortho-Cyclen 28 Tablet] 1 each PO DAILY #30 tablet
--- NOTE | 2017-10-14 20:10 | Consult Note ---
Date of Encounter: 10/14/17 Time of Encounter: 20:00 Assessment & Recommendation (1) Depressed Current visit: Yes Status: Acute Qualifiers: Depression Type: reactive depression Qualified Code(s): F32.9 - Major depressive disorder, single episode, unspecified (2) Overdose Current visit: Yes Status: Acute Qualifiers: Encounter type: initial encounter Injury intent: undetermined intent Qualified Code(s): T50.904A - Poisoning by unspecified drugs, medicaments and biological substances, undetermined, initial encounter (3) Polysubstance abuse Current visit: Yes Status: Acute History of Present Illness Patient: new to practice Requesting Physician: Murali Goodwin Reason for consult: depression questionable overdose History of present illness: Per Chart: Ms. Turner is a 26 year old female who presents to the ER earlier tonight with an altered mental state and minimally responsive state. She appeared to be under the influence of opiates and was given Narcan several times in the ER with very minimal and limited response. She rapidly declined her clinical state and was losing her ability to protect her airway, so she was intubated in the ER and worked up. She was then admitted to ICU for drug overdose and possible miscarriage. Her urine drug screen was positive for multiple substances. She was and appears to have been miscarrying for the last few weeks. Her quantitative hCG has been decreasing since September 03 and, with the vaginal bleeding, has likely been miscarrying. PAVING BED MAKER was consulted per the ER , and I spoke with him personally myself. They will see her in consultation in the morning along with an OB ultrasound. Upon my assessment of the patient in the ICU, patient is intubated and sedated. Her sedation was wearing when she presented to the ICU. She was moving all 4 extremities purposely and did have a gag reflex. We sedated her with fentanyl and Versed and weaned off her Propofol due to the remote possibility of a viable . She is oxygenating well on minimal oxygen. We will continue her ventilation with mechanical ventilator and ask the color stripper to assume care in the morning. There are no family members present to offer any further history. Of note, there is report that patient's was in the ER when she came in, but he left the hospital. I am unsure if there has been any domestic issues at home. Given her multidrug overdose and respiratory failure, I am concerned this might have been a suicide attempt. Therefore, we will place her in suicide precautions and consult psychiatry as well. She was a 26 showed 4 para 1 female with known positive test mid last night to the emergency room to the ICU with polysubstance overdose. She was intubated and stabilized. She had known positive been seen demonstrated which time ultrasound showed her to be 6 weeks 0 days with positive heart tones and subchorionic hemorrhage her quantitative beta hCG at that time was 19,869. She reports to me that she has had no further follow-up for this and did not keep her follow-up in our office after the midnight ER visit. She reports onset of worsening vaginal bleeding or last 2-3 days prior to admission yesterday she was passing large clots and at one point passed what she thought may been products conception. Since being admitted the bleeding has now slowed to her cramping has resolved. She reports significant cramping yesterday which was midline. She denies fevers chills or abnormal discharge aside from the bleeding. She does previously have history of 1 prior vaginal delivery and 2 elective abortions. She does have a long history of narcotics abuse and states recently she was 6-1/ 2 months clean until the last month when she became reacquainted with a friend who recently got out of [facility] Pt is a 26 yo, , female, , with 1 son (9)who presents for depression miscarriage and substance induced. Pt denied any suicidality or intentional overdose. Pt discussed substance abuse hx with provider and note that she has been taking opioids, benzodiazepines and cociane for the past month. Pt noted that she was upset of losing her baby and upset about relapsing however was not suicidal and wanted to be at home with her . Confirmed colloratol with and mother via phone that pt was safe to return home. Pt additonally noted she felt safe and comfortable on the unit and for discharge home. Pt was in agreement with treatment plan. Pt noted that she is doing better today. Pt noted she slept 5 hours last night. Pt noted her appetite is okay. Pt rated her depression a 5, on a scale of zero to ten with ten being the worst and zero being none. Pt rate her anxiety a "5, on the same scale. Pt denied any current visual or auditory hallucinations. Pt denied any thoughts to harm herself or anyone else. Pt denied any hx of abuse, trauma or neglect. Pt denied any hx of domestic violence, or neglect. Pt noted she felt safe and comfortable with her family. Pt was offered inpt admissiont inpt psychiatry yet refused at this time. PT agreed to start sertraline medication management of depression, Pt was educated on the risks benefits and side-effects of these medications including no medication, pt was in agreement. Pt denied any hx of HEP C, HIV, TBIs or seizures. Tobacco: 1ppd Alcohol: Denies Street: opioids, benzodiazepines and cocaine for the past month. Caffeine: 2-3 per day 1.Interval hx 2.Continue current medications 3.Review current labs 4.Pt had an opportunity to ask questions and discuss current treatment plan. 5.Supportive therapy was provided 6.Pt encouraged to consider group or individual therapy 7.Pt was in agreement with treatment plan. 8.Pt was educated on the risks benefits and side effects of current medications. 9. Start sertraline 50 mg pO QAM for mood. 10. Coordinate out pt mental health follow up prior to D/C home 11. Coordinate D/C home with family confirmiing safe d/C with 12. Coordinate substance abuse treatment progaming prior to D/C 13. D/C sitter. 14. Pt reeducated on 90 meetings in 90 days and finding sponsor. The Pt was educated primarily by verbal means about his diagnoses and their manifestations in her life. The option for treatment including group individual therapy programming was offered to her and the use of medications with all their potential risks, benefits, and side-effects were discussed with the pt at length. Pt was given the opportunity to ask questions and she participated in the treatment and planning process. Pt felt ready and eager to be discharged from the from the [facility] to return to her home. Pt felt she was safe for this disposition. Pt was considered to be able to participate in informed consent and decision-making with respect to medical, legal and financial issues at the time of her interview. CC: Murali Goodwin Past Med Surg Social Fam HX - Past Medical History Medical history: no medical history, other (polysubstance abuse) - Past Psychiatric History Psychiatric history: Reports: depression, other (substance abuse severe) Family psychiatric history: No Family History of Suicide: None - Social History Smoking Status: Current every day smoker Smokeless Tobacco Status: No Alcohol use: unknown Drug use: cocaine, opiates, marijuana, methamphetamine, other - Family History Mother History Unknown: Yes Father History Unknown: Yes Medications & Allergies Norgestimate-Ethinyl Estradiol [Ortho-Cyclen 28 Tablet] 1 each PO DAILY #30 tablet 10/14/17 [Rx] 3 Allergy/AdvReac Type Severity Reaction Status Date / Time No Known Allergies Allergy Verified 10/13/17 20:05 Review of Systems Constitutional: Denies: fever, chills, weakness, weight change Eyes: Denies: eye pain, vision change Ears, Nose, Throat: Denies: ear pain, throat pain, dental pain, hearing loss, congestion Cardiovascular: Denies: chest pain, palpitations, dyspnea on exertion Respiratory: Denies: cough, dyspnea, wheezes Gastrointestinal: Denies: abdominal pain, nausea, vomiting, diarrhea, constipation Genitourinary female: Denies: urgency, dysuria, frequency, abnormal menses, dyspareunia Musculoskeletal: Denies: joint swelling, joint pain Integumentary: Denies: rash, lesions, pruritus Neurological: Denies: headache, weakness, numbness, memory loss Psychiatric: Reports: depression, other (substance abuse, severe) Endocrine: Denies: fatigue, heat or cold intolerance Hematologic/Lymphatic: Denies: easy bruising, lymphadenopathy Allergic/Immunologic: Denies: urticaria, itchy eyes Psychiatry Exam - Constitutional Vitals: Temp Pulse Resp BP Pulse Ox 99.2 F 104 14 99/58 97 10/14/17 18:50 10/14/17 18:50 10/14/17 18:50 10/14/17 18:50 10/14/17 18:50 General appearance: age & developmentally appropriate, well-groomed, well- nourished - Musculoskeletal Gait: normal Station: relaxed Strength & Tone: normal for patient - Psychiatric Patient Orientation: Yes Person, Yes Time, Yes Place Level of alertness: Alert Behavior: calm, cooperative, tearful (due to recent miscarriage) Psychomotor activity: Normal Eye Contact: Maintains Eye Contact Mood Description: Euthymic/stable Affect description: congruent with mood, full range Speech Volume: Normal Speech pattern: normal rate, normal rhythm, normal tone, fluent, spontaneous Language & Vocabulary: consistent with education Thought Process: Linear, Goal Oriented Thought Content: No Suicidal ideation, No Homicidal ideation, No Overt delusions Perceptual Disturbances: No Auditory hallucinations, No Visual hallucinations Attention Span Ability: Capable of Focused Attention Memory Description: Grossly Intact Patient Reliability: Reliable Historian Fund of knowledge: Yes abstraction ability, Yes aware of current events Intelligence Estimate: Average Judgment: Limited Insight: Partial Results - Drug Levels and Toxicology Drug Levels and Toxicology: Drug Levels and Toxicity 10/14/17 10/14/17 05:27 05:40 Urine Opiates Screen Positive H Acetaminophen < 10 L Ur Barbiturates Screen Negative Ur Phencyclidine Scrn Positive H Ur Amphetamines Screen Negative U Benzodiazepines Scrn Positive H Urine Cocaine Screen Positive H U Marijuana (THC) Screen Positive H - Labs Labs: Laboratory Last Values WBC 5.0 K/mcL (4.3-11.1) 10/14/17 05:40 RBC 3.28 M/mcL (3.82-4.97) L 10/14/17 05:40 Hgb 9.8 g/dL (11.5-15.4) L 10/14/17 09:36 Hct 28.8 % (35.3-44.9) L 10/14/17 09:36 MCV 86.9 fL (83.0-100.0) 10/14/17 05:40 MCH 30.2 pg (28.0-33.3) 10/14/17 05:40 MCHC 34.7 g/dL (31.6-35.5) 10/14/17 05:40 RDW 12.0 % (11.5-14.5) 10/14/17 05:40 Plt Count 165 K/mcL (140-400) 10/14/17 05:40 MPV 9.4 fL (9.4-12.4) 10/14/17 05:40 Immature Gran % 0.2 % (0-4) 10/14/17 05:40 Seg Neutrophils % 57.5 % 10/14/17 05:40 Lymphocytes % 32.9 % 10/14/17 05:40 Monocytes % 5.8 % 10/14/17 05:40 Eosinophils % 3.2 % 10/14/17 05:40 Basophils % 0.4 % 10/14/17 05:40 Neutrophils # 2.9 K/mcL (1.6-8.9) 10/14/17 05:40 Lymphocytes # 1.6 K/mcL (0.6-4.6) 10/14/17 05:40 Monocytes # 0.3 K/mcL (0.0-1.3) 10/14/17 05:40 Eosinophils # 0.2 K/mcL (0.0-0.6) 10/14/17 05:40 Basophils # 0.0 K/mcL (0.0-0.2) 10/14/17 05:40 PT 13.6 Seconds (9.4-12.1) H 10/14/17 05:40 INR 1.3 10/14/17 05:40 Sample Site R Radial 10/14/17 05:00 ABG pH 7.37 pH Units (7.32-7.45) 10/14/17 05:00 ABG pCO2 39 mmHg (35-45) 10/14/17 05:00 ABG pO2 98 mmHg (85-104) 10/14/17 05:00 ABG HCO3 23 mEq/L (21-27) 10/14/17 05:00 ABG Total CO2 24 mEq/L (20-26) 10/14/17 05:00 ABG O2 Saturation 97 % (95-98) 10/14/17 05:00 ABG Base Excess -3 mEq/L (-2 to 3) L 10/14/17 05:00 Max Test N/A 10/14/17 05:00 Respiration Rate 16 10/14/17 05:00 O2 Delivery Device Adult Vent 10/14/17 05:00 Blood Gas Modality VC 10/14/17 05:00 Inspired O2 25.0 (1-15=lpm [id number]=%) 10/14/17 05:00 Tidal Volume 380 cc 10/14/17 05:00 PEEP 5 cm H2O 10/14/17 00:18 Sodium 140 mEq/L (136-145) 10/14/17 05:40 Potassium 3.6 mEq/L (3.5-5.1) 10/14/17 05:40 Chloride 112 mEq/L (98-107) H 10/14/17 05:40 Carbon Dioxide 19 mEq/L (23-29) L 10/14/17 05:40 BUN 7 mg/dL (6-20) 10/14/17 05:40 Creatinine 0.39 mg/dL (0.60-1.20) L 10/14/17 05:40 Est GFR ( Amer) > 60 (> 60) 10/14/17 05:40 Est GFR (Non-Af Amer) > 60 (> 60) 10/14/17 05:40 BUN/Creatinine Ratio 18 (6-26) 10/14/17 05:40 Glucose 73 mg/dL (70-105) 10/14/17 05:40 POC Glucose 104 mg/dL (70-99) H 10/14/17 00:49 Calculated Osmolality 287 (280-300) 10/14/17 05:40 Lactic Acid 0.8 mmol/L (0.5-2.2) 10/13/17 23:57 Calcium 8.4 mg/dL (8.6-10.3) L 10/14/17 05:40 Magnesium 1.8 mg/dL (1.6-2.6) 10/14/17 05:40 Total Bilirubin 0.5 mg/dL (0.3-1.0) 10/14/17 05:40 Direct Bilirubin 0.2 mg/dL (0.0-0.2) 10/14/17 05:40 Indirect Bilirubin 0.3 mg/dL (0.0-1.2) 10/14/17 05:40 AST 12 Units/L (13-39) L 10/14/17 05:40 ALT 5 Units/L (7-52) L 10/14/17 05:40 Alkaline Phosphatase 30 Units/L (34-104) L 10/14/17 05:40 Serum Total Protein 5.6 g/dL (6.4-8.9) L 10/14/17 05:40 Albumin 3.3 g/dL (3.5-5.7) L 10/14/17 05:40 Globulin 2.3 g/dL (2.4-3.5) L 10/14/17 05:40 Albumin/Globulin Ratio 1.4 (1.1-2.2) 10/14/17 05:40 Beta HCG, Quant 1817 mIU/mL (Less than 5) H 10/14/17 09:36 Urine Color Yellow (Yellow) 10/13/17 23:33 Urine Clarity Clear (Clear) 10/13/17 23:33 Urine pH 6.0 pH Units (5.0-8.0) 10/13/17 23:33 Ur Specific [place] 1.013 (1.010-1.025) 10/13/17 23:33 Urine Protein Negative mg/dL (Neg-Trace) 10/13/17 23:33 Urine Glucose (UA) Normal mg/dL (Normal) 10/13/17 23:33 Urine Ketones Trace mg/dL (Negative) H 10/13/17 23:33 Urine Blood Negative (Negative) 10/13/17 23:33 Urine Nitrite Negative (Negative) 10/13/17 23:33 Urine Bilirubin Negative (Negative) 10/13/17 23:33 Urine Urobilinogen Normal mg/dL (Normal) 10/13/17 23:33 Ur Leukocyte Esterase Negative (Negative) 10/13/17 23:33 Ur Culture Indicated? NO (NO) 10/13/17 23:33 Salicylates < 2.5 mg/dL (15.0-30.0) L 10/14/17 05:40 Urine Opiates Screen Positive ng/mL (Nlevvk=304) H 10/14/17 05:27 Acetaminophen < 10 mcg/mL (10-20) L 10/14/17 05:40 Ur Barbiturates Screen Negative ng/mL (Gndbji=214) 10/14/17 05:27 Ur Phencyclidine Scrn Positive ng/mL (Cutoff=25) H 10/14/17 05:27 Ur Amphetamines Screen Negative ng/mL (Flvhzp=2579) 10/14/17 05:27 U Benzodiazepines Scrn Positive ng/mL (Eskfpq=238) H 10/14/17 05:27 Urine Cocaine Screen Positive ng/mL (Cutoff= 300) H 10/14/17 05:27 U Marijuana (THC) Screen Positive ng/mL (Cutoff = 50) H 10/14/17 05:27 Ethyl Alcohol < 10 mg/dL (Less than 10) 10/13/17 23:57 - Impressions Impressions Obstetrics Ultrasound 10/14/17 09:23 IMPRESSION: 1. There is a large amount of simple appearing free fluid noted in the endometrial canal with a thin septation noted near the uterine fundus. No retained pole or yolk sac is identified. 2. The ovaries are normal in appearance. D/ / 10/14/2017 12:03:30 Demetrio Murrieta MD / antione Interpreting Provider: Demetrio Murrieta MD Head CT 10/14/17 22:44 IMPRESSION: Negative CT brain with no acute intracranial abnormality. Incidental sinusitis as described. D/ / Heather Stiles MD / Heather Stiles MD Interpreting Provider: Heather Stiles MD Consult Discharge Plan - Plan Additional Instructions: Start sertraline 50 mg pO QAM for mood. Coordinate out pt mental health follow up prior to D/C home Coordinate D/C home with family confirmiing safe d/C with Coordinate substance abuse treatment progaming prior to D/C D/C sitter. Pt reeducated on 90 meetings in 90 days and finding sponsor. D/C pt home once medically cleared Referrals: NONE,PCP [Primary Care Provider] - Prescriptions: Norgestimate-Ethinyl Estradiol [Ortho-Cyclen 28 Tablet] 1 each PO DAILY #30 tablet
[2017-10-15 06:48] VITALS: BP 90/56
--- NOTE | 2017-10-15 08:01 | Discharge Summary ---
- NOTES TO OUTPATIENT PROVIDER Notes to Outpatient Provider: Get established with PCP with the help of social services assistant and follow within 1 week. Hemoglobin monitoring if continued to bleed and contact UPHOLSTERY DEPARTMENT SUPERVISOR. Follow with UPHOLSTERY DEPARTMENT SUPERVISOR in 2 weeks already has appointment. Continue OC pills Ortho-Cyclen as prescribed by UPHOLSTERY DEPARTMENT SUPERVISOR Orders not resulted at time of discharge: Pending orders 10/15/17 07:57 CBC no Diff [Complete Blood Count w/o Diff] [HEME] Stat Date of Encounter: 10/15/17 Time of Encounter: 07:57 - Discharge Diagnosis (1) Overdose Priority: Primary Status: Acute Assessment and Plan: Urine drug screen is positive for multiple substances of abuse. Difficult to protect airway therefore patient got intubated and kept in ICU and eventually got extubated successfully and transferred to the floor. There was Concern on suicidal ideation therefore consulted psychiatrist. Initially one-to-one sitter was arranged but after reevaluation by psychiatrists it was clear to send home. Qualifiers: Encounter type: initial encounter Injury intent: undetermined intent Qualified Code(s): T50.904A - Poisoning by unspecified drugs, medicaments and biological substances, undetermined, initial encounter (2) Respiratory failure Priority: Primary Status: Resolved Assessment and Plan: Started on mechanical ventilation and street light inspector consulted. Eventually successful extubation. Qualifiers: Chronicity: acute Respiratory failure complication: unspecified whether with hypoxia or hypercapnia Qualified Code(s): J96.00 - Acute respiratory failure, unspecified whether with hypoxia or hypercapnia (3) Miscarriage Priority: Secondary Status: Suspected Assessment and Plan: Had vaginal bleeding and concern of miscarriages therefore UPHOLSTERY DEPARTMENT SUPERVISOR was consulted. OB ultrasound was performed and no retained residual was found and cleared to discharge patient home from OB standpoint on oral contraceptive pills Ortho-Cyclen and follow-up with them in 2 weeks. (4) Anemia Priority: Secondary Status: Acute Assessment and Plan: Most likely due to ongoing vaginal bleeding. Patient is not symptomatic. Monitor hemoglobin. Initial drop in hemoglobin but repeat stable. Discharge patient on iron sulfate as well. Needs to monitor hemoglobin by PCP within 3-5 days or more frequently if persistent vaginal bleeding and contact UPHOLSTERY DEPARTMENT SUPERVISOR as well. hired worker consulted for discharge planning and helping her in getting established with PCP. Qualifiers: Anemia type: unspecified type Qualified Code(s): D64.9 - Anemia, unspecified Code(s): D64.9 - Anemia, unspecified SNOMED Code(s): 947707243 (5) Depression Priority: Secondary Status: Acute Assessment and Plan: No suicidal thoughts. Evaluated by psychiatrists who plan to discharge her on sertraline 50 mg daily. Follow with PCP for further management. Qualifiers: Depression Type: other depression Qualified Code(s): F32.89 - Other specified depressive episodes Hospital course: Ms. Turner is a 26 year old female patient got admitted for drug overdose and vaginal bleeding secondary to miscarriages. Urine drug screen positive for multiple substance. Please see assessment and plan for detail Discharge discussed with: patient, nurse, social work - Time Spent with Patient Total time spent providing and/or coordinating discharge services: - Discharge Medications Prescriptions: Ferrous Sulfate 325 mg PO BIDWM #60 tablet Norgestimate-Ethinyl Estradiol [Ortho-Cyclen 28 Tablet] 1 each PO DAILY #30 tablet Home Medications: Norgestimate-Ethinyl Estradiol [Ortho-Cyclen 28 Tablet] 1 each PO DAILY #30 tablet 10/14/17 [Rx] Ferrous Sulfate 325 mg PO BIDWM #60 tablet 10/15/17 [Rx] Allergies/Adverse Reactions: 3 Allergy/AdvReac Type Severity Reaction Status Date / Time No Known Allergies Allergy Verified 10/13/17 20:05 Date of admission: 10/14/17 00:12 Primary care physician: PCP NONE Consults: 10/14/17 01:06 Consult to Pulmonology [CONS] Routine Consulting Provider: [facility] [place] Reason for Consult: ICU management Call Completed: No 10/14/17 02:52 Consult to Psychiatry [CONS] Routine Consulting Provider: Psychiatry [place] Reason consult: Sitter/1:1 Other reason and/or additional details: overdose; ? suicide attempt Call Completed: No - Constitutional Vitals: Temp Pulse Resp BP Pulse Ox 98.0 F 86 14 90/56 97 10/15/17 06:45 10/15/17 06:45 10/15/17 06:45 10/15/17 06:45 10/15/17 06:45 Exam: General appearance: No acute distress, A&O X 3 Head exam: Atraumatic Eye exam: EOMI, PERRLA ENT exam: Moist oral mucosa Neck nontender, supple Respiratory exam: Clear to auscultation bilaterally Cardiovascular exam: Regular rate and rhythm, no systolic murmur Abdominal exam: Soft, nontender, nondistended, positive bowel sounds Extremities exam: No calf tenderness, no pedal edema Present: Skin-no rash, warm, dry, intact Neurological exam: Alert, awake, oriented 3, CN II-XII intact, no focal deficits. No facial droop. Normal speech. Normal gait. - Patient Status Disposition: Home, Self-Care Condition: Good Functional capacity at discharge: independent ambulation Overall status at discharge: patient is back to baseline - Discharge Instructions Follow Up With: NONE,PCP [Primary Care Provider] - Additional Instructions: Start sertraline 50 mg pO QAM for mood. Coordinate out pt mental health follow up prior to D/C home Coordinate D/C home with family confirmiing safe d/C with Coordinate substance abuse treatment progaming prior to D/C D/C sitter. Pt reeducated on 90 meetings in 90 days and finding sponsor. D/C pt home once medically cleared - Diet and Activity Activity: increase activity as tolerated Diet: advance to your usual diet - VTE Documentation of Mechanical Device: Intermittent pneumatic compression device
[2017-10-15 08:25] LABS: Hematocrit 26.9 % (35.3-44.9); Hemoglobin 9.5 g/dL (11.5-15.4); Mean Corpuscular HGB Conc 35.3 g/dL (31.6-35.5); Mean Corpuscular Hemoglobin 30.5 pg (28.0-33.3); Mean Corpuscular Volume 86.5 fL (83.0-100.0); Platelet Count 147 K/mcL (140-400); Red Blood Count 3.11 M/mcL (3.82-4.97); Red Cell Distribution Width 12.1 % (11.5-14.5)
== END 2017-10-15 16:43 | disposition home or self-care (01) | DRG 812 ==
LOC: EMEROO 20:00 → ICNU 10-14 00:12 → 3ANU 10-14 12:41 → UNDODISIN 10-14 12:52
PROVIDERS: ADMIT Family Medicine; ATTEND Family Medicine